=== PATIENT | female | born 1980 | race Caucasian/White ===

== ENCOUNTER 2022-06-06 08:04 | Outpatient (CLI) | payer BC | END 2022-06-06 08:05 | disposition home or self-care (01) | LOC: CSHMAMMO 08:04 | PROVIDERS: ATTEND Obstetrics & Gynecology | DX: Z12.31 Encounter for screening mammogram for malignant neoplasm of breast (principal); N64.89 Other specified disorders of breast; N63.21 Unspecified lump in the left breast, upper outer quadrant | CPT/HCPCS: 77063; 77067 ==

== ENCOUNTER 2022-06-10 10:19 | Outpatient (CLI) | payer BC | END 2022-06-10 10:20 | disposition home or self-care (01) | LOC: CSHMAMMO 10:19 | PROVIDERS: ATTEND Obstetrics & Gynecology | DX: N63.20 Unspecified lump in the left breast, unspecified quadrant (principal) | CPT/HCPCS: G0279 ==

== ENCOUNTER 2024-03-25 14:01 | Outpatient (CLI) | payer BC | END 2024-03-25 14:02 | disposition home or self-care (01) | LOC: CSHMAMMO 14:01 | PROVIDERS: ATTEND Obstetrics & Gynecology | DX: Z12.31 Encounter for screening mammogram for malignant neoplasm of breast (principal); Z80.3 Family history of malignant neoplasm of breast | CPT/HCPCS: 77063; 77067 ==

== ENCOUNTER 2025-04-08 13:57 | Outpatient (CLI) | payer BC | END 2025-04-08 13:58 | disposition home or self-care (01) | LOC: CSHMAMMO 13:57 | PROVIDERS: ATTEND Obstetrics & Gynecology | DX: Z12.31 Encounter for screening mammogram for malignant neoplasm of breast (principal); Z80.3 Family history of malignant neoplasm of breast | CPT/HCPCS: 77063; 77067 ==